=== PATIENT | male | born 1965 | race Asian ===

== ENCOUNTER 2024-07-12 08:38 | Emergency (ER) | payer OTHER ==
[~2024-07-12] VITALS: Ht 172.7 cm; Wt 73.0 kg
[2024-07-12 08:44] VITALS: TEMP 97.9; O2SAT 100
[2024-07-12 10:03] LABS: CLARITY URINE TURBID (CLEAR); COLOR URINE RED (YELLOW); GLUCOSE URINE NEGATIVE (NEGATIVE); KETONES URINE NEGATIVE (NEGATIVE); PROTEIN URINE 2+ (NEGATIVE); SPECIFIC GRAVITY URINE 1.015 (1.005-1.030)
[2024-07-12 10:04] LABS: LEUKOCYTE ESTERASE URINE TRACE (NEGATIVE); NITRITE URINE NEGATIVE (NEGATIVE); OCCULT BLOOD URINE 3+ (NEGATIVE); UROBILINOGEN URINE 0.2 E.U./dL (0.2-1.0)
[2024-07-12 10:06] LABS: RBC URINE TNTC /hpf (0-2)
[2024-07-12 10:08] LABS: BACTERIA URINE FEW; YEAST URINE NONE SEEN
[2024-07-12 11:42] LABS: HEMATOCRIT 46.3 % (42.0-52.0); HEMOGLOBIN 15.5 g/dL (14.0-18.0); MEAN CORPUSCULAR HEMOGLOBIN 29.2 pg (28.0-32.0); MEAN CORPUSCULAR HGB CONC 33.4 g/dL (31.0-37.0); MEAN CORPUSCULAR VOLUME 87.4 fL (80.0-94.0); PLATELET 251 x1000/uL (130-400); RED CELL DISTRIBUTION WIDTH 13.3 % (11.6-14.6)
[2024-07-12 11:43] LABS: CHLORIDE 103 mEq/L (98-107); POTASSIUM 4.2 mEq/L (3.5-5.1); SODIUM 135 mEq/L (136-145)
[2024-07-12 11:44] LABS: CARBON DIOXIDE 23 mEq/L (21-32)
[2024-07-12 11:45] LABS: CALCIUM 9.8 mg/dL (8.7-10.4)
[2024-07-12 11:49] LABS: CREATININE 1.1 mg/dL (0.6-1.3); GLUCOSE 124 mg/dL (70-105); UREA NITROGEN BLOOD 10 mg/dL (9-23)
[2024-07-12 11:59] LABS: INR 0.9; PARTIAL THROMBOPLASTIN TIME 28.1 sec (23.4-31.0); PROTHROMBIN TIME 10.4 sec (9.6-11.0)
[2024-07-12] MEDS: MORPHINE SULFATE 2 MG/ML INJ (NOT FOR IM USE) IV ONE (13:00)
[2024-07-12] MEDS ORDERED: CEFTRIAXONE 1GM/50ML 50 ML IV ONE (14:45)
[2024-07-12] MEDS ORDERED: ONDANSETRON HCL 4MG/2ML INJ IV PRN (14:45)
[2024-07-12] MEDS ORDERED: ACETAMINOPHEN 325MG TABLET PO PRN (14:45)
[2024-07-12] MEDS ORDERED: HYDRALAZINE 20MG/ML VIAL IV PRN (14:45)
[2024-07-12] MEDS ORDERED: MORPHINE SULFATE 2 MG/ML INJ (NOT FOR IM USE) IV PRN (14:45)
[2024-07-12] MEDS ORDERED: MAGNESIUM/ALUMINUM HYDROXIDE/SIMETHICONE 30ML UDC PO PRN (14:45)
[2024-07-12] MEDS ORDERED: NALOXONE HCL 0.4MG/ML VIAL IV PRN (15:00)
[2024-07-12] MEDS: AMLODIPINE 5MG TABLET PO SCH (15:43)
[2024-07-12 16:24] VITALS: BP 169/103; PULSE 76; RESP 11; O2SAT 98
[2024-07-12] MEDS: CLONIDINE 0.1MG TABLET PO ONE (16:53)
[2024-07-13] MEDS ORDERED: CEFTRIAXONE 1GM/50ML 50 ML IV SCH (15:00)
== END 2024-07-12 16:25 | disposition short-term general hospital (02) ==
LOC: ER 08:38
DX: R33.8 Other retention of urine (principal); Z79.899 Other long term (current) drug therapy; Z90.89 Acquired absence of other organs
CPT/HCPCS: 80048; 81003; 84550; 85027; 85610; 85730; 86850; 86900; 86901; 36415; 96374; 99285; 84153; J2270; Z7610